=== PATIENT | male | born 1970 | race Caucasian/White ===

== ENCOUNTER → 2023-04-26 07:44 | Outpatient (REF) | payer OTHER, SELFPAY | LOC: PAVMRI 07:44 | PROVIDERS: ATTENDING PHYSICIAN Otolaryngology; FAMILY PHYSICIAN Family Medicine | DX: H93.11 Tinnitus, right ear (principal) | CPT/HCPCS: 70553; A9575 ==

== ENCOUNTER 2023-12-26 10:03 | Emergency (ER) | payer OTHER, SELFPAY ==
--- NOTE | 2023-12-26 10:15 | ED.GENMED ---
ED Provider Triage
<Bianka Watson PA-C - Last Filed: 12/26/23 10:19>
-
Patient seen by provider in Triage?: Seen in Triage
Attestation: A medical screening examination has been initiated by a qualified medical provider. Based on the assessment performed at this time, it has been determined that an emergent medical condition may exist and the patient has been informed
that further medical evaluation and possible additional diagnostic testing may be needed.
HPI: 53yoM here with chest pain. Initially started with R shoulder pain at 8pm last night. Pain has now migrated to the center of the chest. Feels like really bad indigestion. Also c/o lightheadedness. No n/v, diaphoresis, SOB.
GENERAL: Alert , in no apparent distress
EYE: No visual abnormalities.
NECK: Trachea midline
ENT: No visible abnormalities.
LUNGS: No acute respiratory distress
NEUROLOGICAL: Alert and oriented
SKIN: Skin intact. No visible changes.
MUSCULOSKELETAL: Moving extremities normally
PSYCH: Normal and appropriate interaction.
This is a medical evaluation conducted in person to initiate diagnostic evaluation and provide initial therapeutics. Please see further documentation by the treating clinician.
EKG in triage shows NSR with frequent PVCs. Cardiac labs, magnesium, lipase, and CXR ordered.
History of Present Illness
<Bianka Watson PA-C - Last Filed: 12/26/23 10:19>
General
Chief Complaint: Chest Pain
Time Seen by Provider: 12/26/23 11:12
<Maritza Salgado PA-C - Last Filed: 12/26/23 17:37>
General
Source: patient
Exam Limitations: none
Nursing documentation reviewed up to this point in time: agreed with
History of Present Illness
History of Present Illness:
Patient is a 53 year old male presenting with chest pain. Patient states yesterday evening when he was sitting in a chair he started to have pain in his right shoulder which transition to his mid chest. Patient describes the pain as a
tightness/pressure sensation in his mid chest that has been intermittent. No pleuritic or exertional component to pain. He does state mildly worse with movement. Currently he is asymptomatic although he did have an episode of pain while in the
waiting room. Patient states this morning he felt lightheaded and had very mild shortness of breath. Patient denies any back pain, nausea/vomiting, dizziness, numbness/tingling. Patient denies any recent cough or flu. No pain/swelling in lower
extremities.
Patient denies any personal or family history of cardiac disease.
Review of Systems
<Maritza Salgado PA-C - Last Filed: 12/26/23 17:37>
Review of Systems
Allergies reviewed?: Yes
All Other Systems: ROS reviewed and negative except as documented in HPI and ROS
Phy Exam
<Maritza Salgado PA-C - Last Filed: 12/26/23 17:37>
Physical Exam
Physical Exam:
Vitals: Hypertensive, otherwise vital signs stable. Afebrile
General: Patient is well appearing, no acute distress
Skin: Warm and dry, no rashes or lesions
Head: Normocephalic, atraumatic
Eyes: Sclera nonicteric. EOMs intact. No nystagmus.
Throat: Protecting airway
Neck: Normal ROM, no cervical spine tenderness, no meningismus
Cardiac: Regular rate and rhythm, no murmurs. Tenderness noted to mid chest wall. No ecchymoses, rash.
Pulm: Normal respiratory effort, no wheezes, rales, rhonchi heard on exam.
Abdomen: No abdominal tenderness.
Extremities: Right shoulder nontender with full range of motion. No evidence of cyanosis or edema. Great distal pulses
Neuro: AAOx3. No focal neurologic deficits
Psychiatric: Normal affect.
Scores
<Maritza aSlgado PA-C - Last Filed: 12/26/23 17:37>
Heart Score for Chest Pain Patients
STEMI patient?: No
History: Slightly or Non-Suspicious
ECG: Normal
Age: >45 - <65 years
Risk Factors: No Risk Factors
Troponin: </= Normal Limit
Heart Score for Chest Pain Patients: 1
Heart Score Risk: 2.5% MACE over next 6 weeks
<Edgar Monsivais DO - Last Filed: 12/26/23 14:55>
Heart Score for Chest Pain Patients
Heart Score for Chest Pain Patients: 1
Heart Score Risk: 2.5% MACE over next 6 weeks
Course
<Bianka Watson PA-C - Last Filed: 12/26/23 10:19>
Orders/Labs/Results
Orders:
Orders
12/26/23 10:11
ECG [Electrocardiogram (*1)] Urgent
Reason for Study: Chest Pain
12/26/23 10:12
EKG- Treatment ONCE
12/26/23 10:18
CR Chest - 2 Views Urgent
Comment:
Reason For Exam: CP
12/26/23 10:29
Complete Blood Count/With Diff Urgent
Comprehensive Metabolic Panel Urgent
Lipase Urgent
Magnesium Urgent
Troponin I Urgent
12/26/23 12:30
D-Dimer Urgent
12/26/23 13:30
Electrocardiogram (*1) Urgent
Reason for Study: Chest Pain
EKG- Treatment ONCE
12/26/23 13:32
Troponin I Urgent
Abnormal Lab Results
12/26/23
10:29
MCH 31.9 H pg
(27.0-31.0)
MPV 10.7 H fL
(7.4-10.4)
Abs Immat Gran (auto) 0.1 H 10^3/uL
(0-0.05)
Immature Gran % 1.1 H %
(0-0.5)
Glucose 144 H mg/dl
(70-99)
ALT 76 H U/L
(0-50)
12/26/23 10:29
12/26/23 10:29
Vital Signs
Initial and Last Documented VS:
Initial Vital Signs
Temp Pulse Resp BP Pulse Ox
97.8 F 84 16 152/93 99
12/26/23 10:16 12/26/23 10:16 12/26/23 10:16 12/26/23 10:16 12/26/23 10:16
Last Documented Vital Signs
Temp Pulse Resp BP Pulse Ox
97.8 F 65 18 151/108 98
12/26/23 10:16 12/26/23 15:14 12/26/23 15:14 12/26/23 15:14 12/26/23 15:14
<Maritza Salgado PA-C - Last Filed: 12/26/23 17:37>
Orders/Labs/Results
Orders:
Orders
12/26/23 10:11
ECG [Electrocardiogram (*1)] Urgent
Reason for Study: Chest Pain
12/26/23 10:12
EKG- Treatment ONCE
12/26/23 10:18
CR Chest - 2 Views Urgent
Comment:
Reason For Exam: CP
12/26/23 10:29
Complete Blood Count/With Diff Urgent
Comprehensive Metabolic Panel Urgent
Lipase Urgent
Magnesium Urgent
Troponin I Urgent
12/26/23 12:30
D-Dimer Urgent
12/26/23 13:30
Electrocardiogram (*1) Urgent
Reason for Study: Chest Pain
EKG- Treatment ONCE
12/26/23 13:32
Troponin I Urgent
Abnormal Lab Results
12/26/23
10:29
MCH 31.9 H pg
(27.0-31.0)
MPV 10.7 H fL
(7.4-10.4)
Abs Immat Gran (auto) 0.1 H 10^3/uL
(0-0.05)
Immature Gran % 1.1 H %
(0-0.5)
Glucose 144 H mg/dl
(70-99)
ALT 76 H U/L
(0-50)
12/26/23 10:29
12/26/23 10:29
Vital Signs
Initial and Last Documented VS:
Initial Vital Signs
Temp Pulse Resp BP Pulse Ox
97.8 F 84 16 152/93 99
12/26/23 10:16 12/26/23 10:16 12/26/23 10:16 12/26/23 10:16 12/26/23 10:16
Last Documented Vital Signs
Temp Pulse Resp BP Pulse Ox
97.8 F 65 18 151/108 98
12/26/23 10:16 12/26/23 15:14 12/26/23 15:14 12/26/23 15:14 12/26/23 15:14
Danelt;Edgar Monsivais, DO - Last Filed: 12/26/23 14:55>
Orders/Labs/Results
Orders:
Orders
12/26/23 10:11
ECG [Electrocardiogram (*1)] Urgent
Reason for Study: Chest Pain
12/26/23 10:12
EKG- Treatment ONCE
12/26/23 10:18
CR Chest - 2 Views Urgent
Comment:
Reason For Exam: CP
12/26/23 10:29
Complete Blood Count/With Diff Urgent
Comprehensive Metabolic Panel Urgent
Lipase Urgent
Magnesium Urgent
Troponin I Urgent
12/26/23 12:30
D-Dimer Urgent
12/26/23 13:30
Electrocardiogram (*1) Urgent
Reason for Study: Chest Pain
EKG- Treatment ONCE
12/26/23 13:32
Troponin I Urgent
Abnormal Lab Results
12/26/23
10:29
MCH 31.9 H pg
(27.0-31.0)
MPV 10.7 H fL
(7.4-10.4)
Abs Immat Gran (auto) 0.1 H 10^3/uL
(0-0.05)
Immature Gran % 1.1 H %
(0-0.5)
Glucose 144 H mg/dl
(70-99)
ALT 76 H U/L
(0-50)
12/26/23 10:29
12/26/23 10:29
Vital Signs
Initial and Last Documented VS:
Initial Vital Signs
Temp Pulse Resp BP Pulse Ox
97.8 F 84 16 152/93 99
12/26/23 10:16 12/26/23 10:16 12/26/23 10:16 12/26/23 10:16 12/26/23 10:16
Last Documented Vital Signs
Temp Pulse Resp BP Pulse Ox
97.8 F 65 18 151/108 98
12/26/23 10:16 12/26/23 15:14 12/26/23 15:14 12/26/23 15:14 12/26/23 15:14
<Maritza Salgado PA-C - Last Filed: 12/26/23 17:37>
MDM/Problems Addressed
Differential Diagnosis Includes:
Not limited to: GERD, pericarditis, muscle strain, unstable angina, PE, pneumothorax, etc.
MDM/Problems Addressed:
53-year-old male presenting with intermittent mid chest pain. No exertional or pleuritic component. No personal/family history of cardiac disease. No PE risk factors. Mildly hypertensive, otherwise vital signs stable. Exam as above. Patient
very well-appearing, in no apparent distress. He does have reproducible tenderness to anterior mid chest wall. Heart regular rate and rhythm. Lungs clear bilaterally. No clinical evidence of DVT on exam. Labs were initiated in triage without
any clinically significant abnormalities. Initial troponin undetectable. Chest x-ray without any signs of acute disease. Patient asymptomatic at this time although does report symptoms while in waiting room. Suspect likely chest wall
pain/musculoskeletal etiology although will out rule out acute cardiac emergencies. Will trend troponin check D-dimer for completeness. Do not suspect aortic dissection.
Chronic conditions affecting care:
N/A
Acute Exacerbation and/or Progression of Chronic Illness:
N/A
<Maritza Salgado PA-C - Last Filed: 12/26/23 17:37>
*Radiology
Radiology exam reviewed: preliminary read by ED provider (No acute disease) and radiology read reviewed
*Pulse Oximetry
Patient hypoxic: no
*EKG
Interpreted by ED Provider?: Yes
EKG Intrepretation Date: 12/26/23
Interpretation: abnormal
Comparison EKG: no comparison EKG present
Heart Rate: 79
Rate: normal
Rhythm: sinus, PAC's and PVC's
Interval: normal interval
Ischemia: no ischemia
*Manufacturing Maintenance Technician Interpretation
Rate: normal
Interpretation: normal
Heart Rate: 68
Rhythm: sinus
*Critical Care Note
Total Time (30-74mins, 75-104mins- exclusive of procedures): Not Applicable
<Maritza Salgado PA-C - Last Filed: 12/26/23 17:37>
Update Note
Update Note:
Update: D-dimer negative. Repeat troponin undetectable. Patient remains essentially asymptomatic. Low suspicion for emergent cardiac process. Suspect low risk chest pain such as musculoskeletal/chest wall pain. Feel patient is stable for
discharge. He was found to be hypertensive prior to discharge and will follow with primary care regarding this. Return precautions discussed with patient at length. Patient and patient's comfortable plan. Patient seen with attending
physician.
ED Attending Note
<Bianka Watson PA-C - Last Filed: 12/26/23 10:19>
-
Portions of this chart may have been created with voice recognition software.� Occasional wrong word or��sound alike� substitutions may have occurred due to the inherent limitations of voice recognition software.
<Edgar Monsivais DO - Last Filed: 12/26/23 14:55>
ED Attending Note
Patient seen and examined by attending physician: Yes
I performed a history and physical exam of patient and discussed management with resident, I reviewed resident's note and agree with documented findings and plan of care.: Yes
ED Attending Note:
I have reviewed and agree with history treatment plan by Maritza Brown. My exam revealed
Physical Exam
General: no apparent distress, not acutely ill
Neck: supple. no meningeal signs. normal posterior pharynx
Heart: s1/s2 regular rate and rhythm, no murmur. equal radial
pulses. Chest wall tender to palpation, reproducing pain
HEENT: Pupils equal round reactive to light, EOMI
Lungs: no acute respiratory distress. clear bilaterally
Abdomen: normal bowel sounds. not tender. no CVAT
Neuro: alert and oriented. no focal neurological deficits cranial nerves II through XII intact
Skin: no rash
Psychiatric: well kept. interactive and cooperative
Extremities: no edema. no calf tenderness. negative homans. good distal pulses
Suspect muscle wall pain. Doubt ACS or PE. Stable for discharge.
Discharge Plan
Departure
Patient Disposition: Home (Routine Discharge)
Date of Disposition: 12/26/23
Time of Disposition: 14:17
Patient with high blood pressure during this ER visit?: Yes
Condition: Good
Covid-19: Not Applicable
Discharge Problem:
Anterior chest wall pain
Instructions: BLOOD PRESSURE, Chest Pain
Referrals:
Bud De Jesus, [Family Provider] - Follow up in 5-7 days
Activity Restrictions/Additional Instructions:
RETURN TO THE EMERGENCY DEPARTMENT WITH ANY CHEST PAIN, SHORTNESS OF BREATH, SEVERE BACK PAIN, PERSISTENT LIGHTHEADEDNESS/DIZZINESS, WORSENING IN CURRENT SYMPTOMS, OR ANY OTHER CONCERNS
-As discussed�you should monitor your symptoms closely and return to the emergency department any acute worsening/new symptoms. You should follow-up with your primary care provider within the week for further evaluation/management. You may need to
see a drafter (cad) electrical in the future for further evaluation.
-Stay well-hydrated.
-You can take Motrin at home for any discomfort.
Interventions
Interventions:
*Risk Screen - Suicide Last Done: 12/26/23 10:16
*General Assessment Last Done: 12/26/23 10:16
*Neglect/Abuse Screening Last Done: 12/26/23 10:16
ED- Fall Risk Assessment Last Done: 12/26/23 11:42
*Nursing Disposition Last Done: 12/26/23 15:14
ED- Cardiac Assessment Last Done: 12/26/23 11:42
Discharge Date and Time
Discharge Date/Time: 12/26/23 15:15
Print Language: SAMI
[2023-12-26 10:16] VITALS: BP 152/93
[2023-12-26 10:38] LABS: % Basophils 1.1 % (0-2); % Eosinophils 1.3 % (0-6); % Immature Granulocytes 1.1 % (0-0.5); % Lymphocytes 25.9 % (20.5-51.1); % Monocytes 8.8 % (1.7-9.3); % Neutrophils 61.8 % (42.2-75.2); Absolute Basophils 0.1 10^3/uL (0-0.2); Absolute Eosinophils 0.1 10^3/uL (0-0.7); Absolute Immature Granulocytes 0.1 10^3/uL (0-0.05); Absolute Lymphocytes 1.5 10^3/uL (1.2-3.4); Absolute Monocytes 0.5 10^3/uL (0.1-0.6); Absolute Neutrophils 3.5 10^3/uL (1.4-6.5); Hematocrit 45.5 % (39.0-52.0); Hemoglobin 16.4 g/dL (13.0-18.0); Mean Corpuscular Hgb 31.9 pg (27.0-31.0); Mean Corpuscular Volume 88.5 fL (80.0-94.0); Mean Platelet Volume 10.7 fL (7.4-10.4); Nucleated Red Blood Cells % 0 % (-); Platelet Count 239 10^3/uL (130-400); Red Blood Cell Count 5.14 10^6/uL (4.70-6.10); Red Cell Dist. Width 12.4 % (11.5-14.5); White Blood Cell Count 5.6 10^3/uL (4.8-10.8)
[2023-12-26 10:50] LABS: ALT (SGPT) 76 U/L (0-50); AST (SGOT) 47 U/L (17-59); Albumin 4.8 g/dl (3.5-5.0); Alkaline Phosphatase 56 U/L (38-126); Blood Urea Nitrogen 16 mg/dl (9-20); Calcium 9.9 mg/dl (8.4-10.2); Carbon Dioxide 27 mmol/L (22-30); Chloride 101 mmol/L (98-107); Glucose 144 mg/dl (70-99); Lipase 61 U/L (23-300); Magnesium 2.3 mg/dl (1.6-2.3); Potassium 3.9 mmol/L (3.5-5.1); Sodium 140 mmol/L (135-145); Total Bilirubin 0.8 mg/dl (0.2-1.3); Total Protein 8.1 g/dl (6.3-8.2); eGFR > 60.00
[2023-12-26 11:01] LABS: Troponin I < 0.012 ng/ml
[2023-12-26 12:00] VITALS: BP 153/104
[2023-12-26 13:00] VITALS: BP 148/99
[2023-12-26 14:02] LABS: Troponin I < 0.012 ng/ml
[2023-12-26 15:14] VITALS: BP 151/108
== END 2023-12-26 15:15 | disposition home or self-care (01) ==
LOC: EMR 10:03
PROVIDERS: Physician Assistant; EMERGENCY PHYSICIAN Emergency Medicine; FAMILY PHYSICIAN Family Medicine
DX: R07.89 Other chest pain (principal); R03.0 Elevated blood-pressure reading, without diagnosis of hypertension
CPT/HCPCS: 99285; 71046; 80053; 83690; 83735; 84484; 85025; 85379; 93005

== ENCOUNTER → 2024-01-03 08:17 | Outpatient (REF) | payer SELFPAY | LOC: RAD 08:17 | PROVIDERS: ATTENDING PHYSICIAN Family Medicine | DX: E78.2 Mixed hyperlipidemia (principal) | CPT/HCPCS: 75571 ==

== ENCOUNTER → 2024-02-09 08:13 | Outpatient (REF) | payer OTHER, SELFPAY | LOC: RAD 08:13 | PROVIDERS: ATTENDING PHYSICIAN Family Medicine | DX: R74.8 Abnormal levels of other serum enzymes (principal) | CPT/HCPCS: 76700 ==